=== PATIENT | male | born 1955 | race Caucasian/White ===

== ENCOUNTER 2023-12-31 09:59 | Emergency (ER) | payer OTHER, MEDICARE ==
[~2023-12-31] VITALS: Ht 190.5 cm; Wt 127.0 kg
[2023-12-31 10:00] VITALS: BP 148/83; PULSE 104; RESP 18; O2SAT 98
[2023-12-31 11:35] LABS: ALBUMIN 3.9 g/dL (3.5-5.0); BILIRUBIN,TOTAL 0.6 mg/dL (0.2-1.0); CREATININE 1.1 mg/dL (0.5-1.5); POTASSIUM 4.1 mmol/L (3.5-5.1); TOTAL PROTEIN, SERUM 7.2 g/dL (6.0-8.3)
[2023-12-31 11:52] LABS: APPEARANCE,URINE CLEAR (CLEAR); BILIRUBIN,URINE NEGATIVE (NEGATIVE); COLOR,URINE YELLOW (YELLOW); GLUCOSE, URINE (UA) NEGATIVE (NEGATIVE); KETONES,URINE 10 mg/dL (NEGATIVE); LEUKOCYTE ESTERASE ,URINE NEGATIVE Leu/uL (NEGATIVE); NITRATE,URINE NEGATIVE (NEGATIVE); PH,URINE 5.5 (5.0-8.0); PROTEIN,URINE 20 mg/dL (NEGATIVE); UROBILINOGEN,URINE 0.2 mg/dL (0.2-1.0)
[2023-12-31 11:53] LABS: BASOPHILS # (AUTO) 0.02 K/uL (0.00-0.20); BASOPHILS % (AUTO) 0.2 % (0.0-5.0); EOSINOPHILS # (AUTO) 0.01 K/uL (0.00-0.70); EOSINOPHILS % (AUTO) 0.1 % (0.0-8.0); HEMATOCRIT 39.7 % (42-54); IMMATURE GRANULOCYTE ABSOLUTE 0.04 K/uL (0-1); LYMPHOCYTES # (AUTO) 0.6 K/uL (1.0-4.8); LYMPHOCYTES % (AUTO) 5.5 % (21.0-51.0); MEAN CORPUSCULAR HEMOGLOBIN 31.7 pg (27.0-33.0); MEAN CORPUSCULAR HGB CONC 35.3 g/dL (32.0-36.0); MEAN CORPUSCULAR VOLUME 89.8 fL (79-99); MONOCYTES # (AUTO) 0.8 K/uL (0.1-1.0); MONOCYTES % (AUTO) 6.6 % (3.0-13.0); NEUTROPHILS # (AUTO) 9.9 K/uL (1.8-7.7); NEUTROPHILS % (AUTO) 87.2 % (40.0-77.0); PLATELET COUNT (AUTO) 151 K/uL (130-400); RED BLOOD CELL COUNT(AUTO) 4.42 MIL/uL (4.50-6.20); RED CELL DISTRIBUTION WIDTH 12.6 % (11.0-15.5); WHITE BLOOD COUNT (AUTO) 11.3 K/uL (4.8-10.8)
[2023-12-31 12:01] LABS: ADD UA MICROSCOPIC YES
[2023-12-31 12:02] LABS: MUCUS,URINE RARE LPF (None Seen); RBC,URINE 0-1 /HPF (0-1); SQUAMOUS EPITHELIAL CELL,UR RARE /HPF (0-2)
[2023-12-31] MEDS ORDERED: IOHEXOL-350 75 ML VIAL IV ONE (12:17)
[2023-12-31] MEDS: KETOROLAC 30MG VIAL (30MG/ML) IVP ONE (12:42)
[2023-12-31] MEDS: 0.9%NACL 1000ML 1,000 ML IV ONE (12:42)
[2023-12-31] MEDS: FAMOTIDINE 20MG VIAL IV ONE (12:42)
[2023-12-31] MEDS: METOCLOPRAMIDE 10 MG/2 ML VIAL IVP ONE (12:42)
[2023-12-31] MEDS ORDERED: AZIT500T4 PO (13:39)
[2023-12-31] MEDS ORDERED: ONDA4TAB10 PO (13:39)
[2023-12-31] MEDS: AZITHROMYCIN 250 MG TABLET PO ONE (13:48)
== END 2023-12-31 14:01 | disposition home or self-care (01) ==
LOC: EDH 09:59
DX: K52.9 Noninfective gastroenteritis and colitis, unspecified (principal); I10 Essential (primary) hypertension; E78.00 Pure hypercholesterolemia, unspecified; Z79.899 Other long term (current) drug therapy; Z98.890 Other specified postprocedural states
CPT/HCPCS: 99285; 74177; 96374; 96375; 80053; 83690; 85025; 81001; 36415; J3490; J7030; J1885; J2765; Q9967